=== PATIENT | male | born 2005 | race African-American/Black ===

== ENCOUNTER 2024-03-23 21:44 | Emergency (ER) | payer OTHER ==
[~2024-03-23] VITALS: Ht 177.8 cm; Wt 55.0 kg
[2024-03-23 22:06] VITALS: O2SAT 99
[2024-03-23] MEDS ORDERED: ACETAMINOPHEN 325MG TABLET PO ONE (22:30)
[2024-03-23] MEDS: ACETAMINOPHEN 325MG TABLET PO NR (23:00)
[2024-03-23] MEDS ORDERED: FLUORESCEIN SODIUM 1MG/STRIP LEFTEYE ONE (23:30)
[2024-03-23] MEDS ORDERED: TETRACAINE 0.5% OPHTH DROPS 4ML LEFTEYE ONE (23:30)
[2024-03-23] MEDS: TETRACAINE 0.5% OPHTH DROPS 4ML LEFTEYE NR (23:58)
[2024-03-23] MEDS: FLUORESCEIN SODIUM 1MG/STRIP LEFTEYE NR (23:58)
[2024-03-24] VITALS: BP 126/74; PULSE 98; RESP 18; TEMP 98.4
[2024-03-24] MEDS ORDERED: OFLO5DRO LEFTEYE (00:33)
== END 2024-03-24 00:48 | disposition home or self-care (01) ==
LOC: ER 21:44
DX: S05.02XA Injury of conjunctiva and corneal abrasion without foreign body, left eye, initial encounter (principal); X58.XXXA Exposure to other specified factors, initial encounter; Y93.89 Activity, other specified; Y92.89 Other specified places as the place of occurrence of the external cause; Y99.8 Other external cause status
CPT/HCPCS: 70486; 99284